=== PATIENT | female | born 1985 | race Caucasian/White ===

== ENCOUNTER → 2021-11-01 | Outpatient (CLI) | payer OTHER ==
[~2021-11-01] VITALS: Ht 167.6 cm; Wt 60.8 kg
--- NOTE | 2021-11-01 13:59 | 2DMMODE ---
[place] [address] 2 D/M-MODE ECHOCARDIOGRAM Name: JEANNIE FIGUEROA Room: [facility]#: [id number] Admission: 11/01/21 Attend Phys: Shlomo Ortiz, Discharge: Date of : 85 Date of Service: 11/01/21 1358 Report #: [id number] THIS REPORT FOR: cc: Tavia Nagel MD, Molly MD Holkins, John M. MD [facility] ~ APPROVED REPORT Study performed: 11/01/2021 12:12:40 EXAM: Comprehensive 2D, Doppler, and color-flow Echocardiogram Patient Location: Out-Patient BSA: 1.68 HR: 72 bpm BP: 110/80 mmHg Other Information Study Quality: Good Indications Palpitations Chest Pain 2D Dimensions IVSd: 8.61 (7-11mm) LVOT Diam: 20.26 (18-24mm) LVDd: 45.82 mm PWd: 9.20 (7-11mm) Ascending Ao: 29.49 (22-36mm) LVDs: 28.74 (25-40mm) Aortic Root: 28.78 mm Volumes Left Atrial Volume (Systole) LA ESV Index: 16.50 mL/m2 Aortic Valve AoV Peak Austen.: 1.08 m/s AO Peak Gr.: 4.63 mmHg LVOT Max P.47 mmHg AO Mean Gr.: 2.44 mmHg LVOT Mean P.20 mmHg LVOT Max V: 0.79 m/s AO V2 VTI: 17.17 cm LVOT Mean V: 0.51 m/s KARINA (VTI): 2.92 cm2 LVOT V1 VTI: 15.54 [place] [address] 2 D/M-MODE ECHOCARDIOGRAM Name: JEANNIE FIGUEROA [id number] Admission: 11/01/21 Attend Phys: Shlomo Ortiz, Discharge: Date of : 85 Date of Service: 11/01/21 1358 Report #: [id number] E/A Ratio: 1.75 MV Decel. Time: 182.33 ms MV E Max Austen.: 0.67 m/s MV PHT: 52.88 ms MVA (PHT): 4.16 cm2 TDI E/Lateral E': 3.94 E/Medial E': 5.15 Medial E' Austen.: 0.13 m/s Lateral E' Austen.: 0.17 m/s Pulmonary Valve PV Peak Austen.: 0.81 m/s PV Peak Gr.: 2.64 mmHg Left Ventricle The left ventricle is normal size. There is normal LV segmental wall motion. There is normal left ventricular wall thickness. Left ventricular systolic function is normal. The left ventricular ejection fraction is within the normal range. LVEF is 55-60%. The left ventricular diastolic function is normal. Right Ventricle The right ventricle is normal size. The right ventricular systolic function is normal. Atria The left atrium size is normal. The right atrium size is normal. Aortic Valve The aortic valve is normal in structure. No aortic regurgitation is present. There is no aortic valvular stenosis. Mitral Valve The mitral valve is normal in structure. There is no mitral valve regurgitation noted. No evidence of mitral valve stenosis. Tricuspid Valve The tricuspid valve is normal in structure. There is no tricuspid valve regurgitation noted. Pulmonic Valve The pulmonary valve is normal in structure. There is no pulmonic valvular regurgitation[place] [address] 2 D/M-MODE ECHOCARDIOGRAM Name: JEANNIE FIGUEROA Room: [facility]#: [id number] Admission: 11/01/21 Attend Phys: Shlomo Ortiz, Discharge: Date of : 85 Date of Service: 11/01/21 1358 Report #: [id number] The aortic root is normal in size. IVC is normal in size and collapses >50% with inspiration. Pericardium There is no pericardial effusion. <Conclusion> The left ventricle is normal size. There is normal left ventricular wall thickness. LVEF is 55-60%. The left ventricular diastolic function is normal. The right ventricle is normal size. The left atrium size is normal. The aortic valve is normal in structure. The mitral valve is normal in structure. The tricuspid valve is normal in structure. IVC is normal in size and collapses >50% with inspiration. There is no pericardial effusion. There is normal LV segmental wall motion. <ELECTRONICALLY SIGNED> By: Brian Vang MD, [facility] 11/01/21 1358 1358 1358 Brian Vang MD, [facility] /INF
--- NOTE | 2021-11-01 17:08 | CARDNUC ---
[place] [address] CARDIAC NUCLEAR IMAGING REPORT Name: JEANNIE FIGUEROA Room: [facility]#: [id number] Admission: 11/01/21 Attend Phys: Shlomo Ortiz, Discharge: Date of : 85 Date of Service: 11/01/21 1708 Report #: [id number] THIS REPORT FOR: cc: Tavia Nagel MD, Molly MD Liston, Michael J. MD [facility] ~ APPROVED REPORT Study performed: 11/01/2021 12:21:34 Exam: Nuclear Stress Test Indication: Dyspnea Patient Location: Out-Patient Stress Nurse: MARGARITA Nieves Tech:RAUL Drake Ht: 5 ft 6 in Wt: 128 lbs BSA: 1.65 m2 BMI: 20.65 Medical History Medical History: Hyperlipidemia, RBBB Medications: no medications Allergies: No known drug allergies Cardiac Risk Factors: Hyperlipidemia Exercise History: Physically active Stress Test Details Stress Test: Exercise stress testing was performed using a Kirill protocol. HR Resting HR: 82 bpm Max Heart Rate (APMHR): 184 bpm Max HR Achieved: 167 bpm Target HR (85% APMHR): 156 bpm % of APMHR: 90 Recovery HR: 98 bpm BP Resting BP: 111/79 mmHg Max BP: 137/72 mmHg ECG Resting ECG: Sinus Rhythm, RBBB Stress ECG: Sinus Tachycardia, RBBB Recovery ECG: Sinus Rhythm, [place] [address] CARDIAC NUCLEAR IMAGING REPORT Name: JEANNIE BRITTON [place] [facility] [id number] Admission: 11/01/21 Attend Phys: Shlomo Ortiz, Discharge: Date of : 85 Date of Service: 11/01/21 1708 Report #: [id number] Clinical Reason for Termination: Fatigue Exercise duration: 8 min 36 sec Exercise capacity: 10.16 METs Functional Aerobic Impairment 91% The patient tolerated standard Kirill protocol exercise without significant cardiac complaint. Stress ECG Conclusion The baseline twelve-lead EKG shows sinus rhythm with incomplete right bundle branch block. There were no significant ST or T wave abnormalities noted. EKGs obtained during and post exercise show sinus rhythm and sinus tachycardia with no significant ST segment or T wave changes when compared to baseline. There were no stress-induced arrhythmias. NM EXAM: Myocardial Perfusion REST/STRESS Imaging Protocol: Rest Tc-99m/Stress Tc-99m 1 day Resting Data Rest SPECT myocardial perfusion imaging was performed in supine position 30 minutes following the intravenous injection of 11.4 mCi of Tc-99m Sestamibi. Time of rest injection: 1110 Date: 11/01/2021 The images were gated to evaluate regional wall motion and calculate left ventricular ejection fraction. Administration Route: IV Administration Site: Right AC Exercise Stress At peak stress, the patient was injected intravenously with 34.6mCi of Tc-99m Sestamibi. Time of stress injection: 1230 Date: 11/01/2021 Administration Route: IV Administration Site: Right AC Gated Stress SPECT was performed 30 minutes after stress injection. The images were gated to evaluate regional wall motion and calculate left ventricular ejection fraction. Prone imaging was performed. Study Quality Study: Good Artifact: [place] [address] CARDIAC NUCLEAR IMAGING REPORT Name: JEANNIE FIGUEROA Room: [facility]#: [id number] Admission: 11/01/21 Attend Phys: ElizaAnitra Reji Ortiz, Discharge: Date of : 85 Date of Service: 11/01/21 1708 Report #: [id number] At rest, the left ventricular ejection fraction was 73%.. Post stress, the left ventricular ejection was 63%.. TID = 0.99. Perfusion Perfusion images obtained at rest and post exercise stress showed no evidence of defect to suggest infarct or ischemia. Wall Motion Normal left ventricular wall motion. Nuclear Conclusion ECG Findings: negative for ischemia Clinical Findings: negative for ischemia Nuclear Findings: negative for ischemia Exercise Capacity: normal Left Ventricular Function: normal Risk Study: low Perfusion images show no defect to suggest infarct or ischemia. Left ventricular systolic function appears normal on gated studies. This is a low risk study. <Conclusion> The baseline twelve-lead EKG shows sinus rhythm with incomplete right bundle branch block. There were no significant ST or T wave abnormalities noted. EKGs obtained during and post exercise show sinus rhythm and sinus tachycardia with no significant ST segment or T wave changes when compared to baseline. There were no stress-induced arrhythmias. <ELECTRONICALLY SIGNED> By: Bhavik Aleman MD, FACC 11/01/21 1708 07 07 Bhavik Aleman MD, FACC /INF
== END ==
LOC: M.CRD 10:10
PROVIDERS: ATTEND Internal Medicine
DX: I45.19 Other right bundle-branch block (principal); R07.9 Chest pain, unspecified; R00.0 Tachycardia, unspecified; R00.2 Palpitations; R06.02 Shortness of breath

== ENCOUNTER → 2021-11-01 | Outpatient (CLI) | payer OTHER | LOC: M.CT 10:00 | PROVIDERS: ATTEND Internal Medicine | DX: Z13.6 Encounter for screening for cardiovascular disorders (principal) ==